=== PATIENT | female | born 1940 | race Caucasian/White ===

== ENCOUNTER → 2016-12-25 | Outpatient (CLI) | payer MEDICARE, OTHER ==
[~2016-12-25] MED LIST: AMARYL 2MG TABLE2 MG PO; ASPIR 8181 MG PO; CATAPRES 0.1MG0.1 MG PO; COLCHICINE0.6 M1 PO; DIOVAN320 MG PO; FAMOTIDINE20 MG PO; GLUCOPHAGE1000 MG PO; LASIX 40 MG TAB40 MG PO; LOPRESSOR 25 MG25 MG PO; LYRICA75 MG PO; NITROSTAT0.4 MG SL; NORVASC 5 MG TAB5 MG PO; PLAVIX 75 MG TA75 MG PO; POTASSIUM CHLO20 ME1 PO; RANEXA500 MG PO
== END ==
LOC: LAB 07:39
PROVIDERS: Emergency Medicine
DX: E11.22 Type 2 diabetes mellitus with diabetic chronic kidney disease (principal); E11.42 Type 2 diabetes mellitus with diabetic polyneuropathy; E11.649 Type 2 diabetes mellitus with hypoglycemia without coma; E11.65 Type 2 diabetes mellitus with hyperglycemia; E78.2 Mixed hyperlipidemia; G56.00 Carpal tunnel syndrome, unspecified upper limb; I25.10 Atherosclerotic heart disease of native coronary artery without angina pectoris; I67.89 Other cerebrovascular disease; I69.820 Aphasia following other cerebrovascular disease; J06.9 Acute upper respiratory infection, unspecified; L08.9 Local infection of the skin and subcutaneous tissue, unspecified; M51.36 Other intervertebral disc degeneration, lumbar region; I12.9 Hypertensive chronic kidney disease with stage 1 through stage 4 chronic kidney disease, or unspecified chronic kidney disease; N18.3 Chronic kidney disease, stage 3 (moderate); M79.1 Myalgia; N39.0 Urinary tract infection, site not specified; R60.0 Localized edema; R80.8 Other proteinuria; R91.8 Other nonspecific abnormal finding of lung field
CPT/HCPCS: 36415; 80053; 80061; 82043; 82570; 83036; 83704

== ENCOUNTER → 2017-01-28 | Outpatient (CLI) | payer MEDICARE, OTHER | LOC: KOH-I 09:34 | DX: E11.22 Type 2 diabetes mellitus with diabetic chronic kidney disease (principal); E11.42 Type 2 diabetes mellitus with diabetic polyneuropathy; E11.649 Type 2 diabetes mellitus with hypoglycemia without coma; E11.65 Type 2 diabetes mellitus with hyperglycemia; E11.69 Type 2 diabetes mellitus with other specified complication; E78.2 Mixed hyperlipidemia; G56.00 Carpal tunnel syndrome, unspecified upper limb; H81.13 Benign paroxysmal vertigo, bilateral; I25.10 Atherosclerotic heart disease of native coronary artery without angina pectoris; I67.89 Other cerebrovascular disease; I69.820 Aphasia following other cerebrovascular disease; J06.9 Acute upper respiratory infection, unspecified; J30.89 Other allergic rhinitis; K21.9 Gastro-esophageal reflux disease without esophagitis; L08.9 Local infection of the skin and subcutaneous tissue, unspecified; M51.36 Other intervertebral disc degeneration, lumbar region; M79.1 Myalgia; R19.02 Left upper quadrant abdominal swelling, mass and lump; R60.0 Localized edema; R80.8 Other proteinuria; R91.8 Other nonspecific abnormal finding of lung field; I12.9 Hypertensive chronic kidney disease with stage 1 through stage 4 chronic kidney disease, or unspecified chronic kidney disease | CPT/HCPCS: 74176 ==